=== PATIENT | male | born 1945 | race Hispanic/Latino ===

== ENCOUNTER 2018-10-10 06:45 | Observation (INO) | payer MEDICARE ==
[~2018-10-10] VITALS: Ht 175.3 cm; Wt 76.0 kg
--- OUTSIDE RECORDS SUMMARY | 2018-10-10 06:47 | XMS REPORT ---
[facility] Address Unknown Phone Unavailable Care Team Providers Care Alcohol And Drug Counselor Name Role Phone Unavailable Unavailable Payers Payer Name Policy Type Policy Number Effective Date Expiration Date Problems This patient has no known problems. Allergies, Adverse Reactions, Alerts This patient has no known allergies or adverse reactions. Medications This patient has no known medications. Encounters Start Date/Time End Date/Time Encounter Type Admission Type Attending [facility] Care Facility Care Department Encounter ID 2018-09-29 00:00:00 2018-09-29 00:00:00 Outpatient [facility] [id number] 2018-09-14 05:14:53 2018-09-14 05:14:53 Emergency [facility] [id number] 2018-09-14 00:58:30 2018-09-14 00:58:30 Emergency [facility] [id number] 2018-09-13 22:27:47 2018-09-13 22:27:47 Emergency [facility] [id number] 2018-09-13 21:35:13 2018-09-13 21:35:13 Outpatient [facility] [id number]
--- OUTSIDE RECORDS SUMMARY | 2018-10-10 06:47 | XMS REPORT | Clinical Summary ---
Author Author [facility] Organization [facility] Address Unknown Phone Unavailable Care Team Providers Care Dental Manager Name Role Phone PCP Unavailable Allergies No Known Allergies Medications End Date Status Medication Sig Dispensed Refills Start Date Active losartan (COZAAR) 50 mg Take 50 mg by 0 tablet mouth daily. Active allopurinol (ZYLOPRIM) Take 300 mg 0 300 mg tablet by mouth daily. Active acetaminophen (TYLENOL) Take 2 30 tablet 0 500 mg tabletIndications: tablets by 9 Non-intractable vomiting mouth every 6 with nausea, unspecified hours. vomiting type Active omeprazole (PRILOSEC) 20 Take 2 90 capsule 0 mg delayed release capsules by 9 capsuleIndications: mouth every Non-intractable vomiting morning with nausea, unspecified (before vomiting type breakfast). 12/14/2018 Active sucralfate (CARAFATE) 1 Take 1 tablet 120 tablet 2 gram tabletIndications: by mouth 4 9 Non-intractable vomiting times daily with nausea, unspecified for 90 days. vomiting type 09/15/2018 Discontinued lisinopril-hydrochlorothi Take 1 tablet 0 azide (PRINZIDE, by mouth ZESTORETIC) 20-25 mg per daily. tablet 09/15/2018 Discontinued naproxen (NAPROSYN) 500 Take 500 mg 0 mg tablet by mouth 2 times daily (with meals). 09/15/2018 Discontinued amoxicillin-clavulanate Take 1 tablet 0 (AUGMENTIN) 500-125 mg by mouth 3 per tablet times daily. 09/15/2018 Discontinued benzonatate (TESSALON Take 1 30 capsule 0 PERLES) 100 mg capsule by 4 capsuleIndications: Cough mouth 3 times daily as needed for Cough. 09/15/2018 Discontinued indomethacin (INDOCIN) 50 Take 1 30 capsule 0 mg capsuleIndications: capsule by 4 Gout, unspecified mouth 2 times daily (with meals). 09/15/2018 Discontinued traMADol (ULTRAM) 50 mg Take 1 tablet 30 tablet 0 tabletIndications: Gout, by mouth 4 unspecified every 6 hours as needed for Pain. 09/15/2018 Discontinued meclizine (ANTIVERT) 25 Take 1 tablet 30 tablet 0 mg TabIndications: by mouth 3 6 Vertigo times daily as needed for Nausea. 09/25/2018 docusate sodium (COLACE) Take 1 10 capsule 0 100 mg capsule by 9 capsuleIndications: mouth 2 times Non-intractable vomiting daily for 10 with nausea, unspecified days. vomiting type Active Problems Problem Noted Date Non-intractable vomiting with nausea 09/13/2018 Vertigo 06/17/2015 Essential hypertension, benign 09/23/2013 Gout, unspecified 09/23/2013 Cough 09/16/2013 Encounters Care Team Description Date Type Specialty Won Hunter MD Sergot, Paulina, MD Huebinger, Ryan M, MD Wilson, Todd D, MD Wilson, Lily, RN Non-intractable vomiting with nausea, unspecified vomiting type (Primary Dx); Cough; Generalized abdominal pain 09/13/2018 Emergency - 09/15/2018 09/13/2018 Travel after 10/09/2017 Social History Date Tobacco Use Types Packs/Day Years Used Quit: 09/15/1991 Former Smoker 1.5 15 Smokeless Tobacco: Never Used Alcohol Use Drinks/Week oz/Week Comments No Sex Assigned at Date Recorded Not on file Industry Job Start Date Occupation Not on file Not on file Not on file Travel End Travel History Travel Start No recent travel history available. Last Filed Vital Signs Time Taken Vital Sign Reading 09/15/2018 2:37 PM CDT Blood Pressure 123/75 09/15/2018 2:37 PM CDT Pulse 91 09/15/2018 2:37 PM CDT Temperature 36.8 C (98.3 F) 09/15/2018 2:37 PM CDT Respiratory Rate 18 09/14/2018 8:37 AM CDT Oxygen Saturation 98% - Inhaled Oxygen - Concentration 09/14/2018 9:50 AM CDT Weight 81.6 kg (180 lb) 09/14/2018 9:50 AM CDT Height 172.7 cm (5' 8") 09/14/2018 9:50 AM CDT Body Mass Index 27.37 Plan of Treatment Health Maintenance Due Date Last Done Comments Colorectal Cancer Scrn 09/21/1997 Annual (FIT/FOBT) Age 50 to 75 IMM Pneumococcal Age 65 09/21/2012 and Up IMM Influenza Seasonal 02/24/2019 Oct to July (>/=19 yrs) Procedures Comments Procedure Name Priority Date/Time Associated Diagnosis U/S ABDOMEN LIMITED STAT 09/14/2018 Generalized abdominal 6:06 AM CDT pain TROPONIN I POC Routine 09/14/2018 1:[address] ABDOMEN AND PELVIS STAT 09/14/2018 Generalized abdominal CONTRAST 1:26 AM CDT pain 12 LEAD EKG Routine 09/14/2018 1:11 AM CDT XRAY CHEST 2 VIEWS STAT 09/13/2018 Non-intractable vomiting 10:35 PM CDT with nausea, unspecified vomiting type Cough 12 LEAD EKG Routine 09/13/2018 9:59 PM CDT ABG POC Routine 09/13/2018 9:51 PM CDT BMP POC Routine 09/13/2018 9:50 PM CDT TROPONIN I POC Routine 09/13/2018 9:48 PM CDT CBC/DIFF STAT 09/13/2018 9:45 PM CDT LIVER PROFILE STAT 09/13/2018 9:45 PM CDT LIPASE STAT 09/13/2018 9:45 PM CDT after 10/09/2017 Results * U/S ABDOMEN LIMITED (09/14/2018 6:06 AM CDT) Impressions Performed At IMPRESSION: [facility] Findings are equivocal for acute cholecystitis. There are nonmobile stones at the gallbladder neck with trace pericholecystic fluid, but wall thickening and sonographic Morel sign are absent. Correlate with clinical suspicion and exam. A HIDA scan may be beneficial, if doubt persists. This [facility] radiology report is a preliminary resident dictation until finalized by an attending.Changes to this preliminary report may occur in an additional preliminary or finalized version. Dictated By: Niraj Vu MD, 09/14/2018 6:27 AM I have reviewed the study and agree with the findings in this report. Signed By: David Renee MD, 09/14/2018 6:42 AM Narrative Performed At EXAM: US ABDOMEN LIMITED [facility] DATE: 09/14/2018 6:06 AM INDICATION: Right upper quadrant pain, stone in neck. Generalized abdominal pain COMPARISON: CT abdomen/pelvis 09/14/2018 TECHNIQUE: Multiplanar grayscale and color Doppler ultrasound of the right upper quadrant. FINDINGS: Liver: Craniocaudal length: 15.6 cm. Echogenicity: Normal. Surface: Normal. Mass (size and location): None. Main portal vein: Caliber: 1.3 cm. Flow: Hepatopetal. Bile ducts: Common bile duct diameter: 0.4 cm. Intrahepatic ducts: Normal. Gallbladder: Well distended. Gallstones: Multiple stones including nonmobile gallstones near the gallbladder neck. Gallbladder sludge: Large amount. Gallbladder wall: 0.2 cm. Polyps/masses: None. Pericholecystic fluid: Trace. Sonographic Morel sign: Absent; The patient was medicated, however. Pancreas: Partially obscured. No focal lesions. Spleen: Size: 9.7 x 5.1 x 4.9 cm. Mass or focal lesion (size and location): None. Right kidney: Size: 8.9 x 4.3 x 5.7 cm. Cortical thickness: Normal. Hydronephrosis: None. Echogenicity: Normal. Calculi: None. Cysts/Masses: Multiple anechoic (simple) cysts are seen. Free fluid: None. Other: None. Procedure Note Interface, Rad/Mammog In - 09/14/2018 6:47 AM CDT EXAM: US ABDOMEN LIMITED DATE: 09/14/2018 6:06 AM INDICATION: Right upper quadrant pain, stone in neck. Generalized abdominal pain COMPARISON: CT abdomen/pelvis 09/14/2018 TECHNIQUE: Multiplanar grayscale and color Doppler ultrasound of the right upper quadrant. FINDINGS: Liver: Craniocaudal length: 15.6 cm. Echogenicity: Normal. Surface: Normal. Mass (size and location): None. Main portal vein: Caliber: 1.3 cm. Flow: Hepatopetal. Bile ducts: Common bile duct diameter: 0.4 cm. Intrahepatic ducts: Normal. Gallbladder: Well distended. Gallstones: Multiple stones including nonmobile gallstones near the gallbladder neck. Gallbladder sludge: Large amount. Gallbladder wall: 0.2 cm. Polyps/masses: None. Pericholecystic fluid: Trace. Sonographic Morel sign: Absent; The patient was medicated, however. Pancreas: Partially obscured. No focal lesions. Spleen: Size: 9.7 x 5.1 x 4.9 cm. Mass or focal lesion (size and location): None. Right kidney: Size: 8.9 x 4.3 x 5.7 cm. Cortical thickness: Normal. Hydronephrosis: None. Echogenicity: Normal. Calculi: None. Cysts/Masses: Multiple anechoic (simple) cysts are seen. Free fluid: None. Other: None. IMPRESSION IMPRESSION: Findings are equivocal for acute cholecystitis. There are nonmobile stones at the gallbladder neck with trace pericholecystic fluid, but wall thickening and sonographic Morel sign are absent. Correlate with clinical suspicion and exam. A HIDA scan may be beneficial, if doubt persists. This [facility] radiology report is a preliminary resident dictation until finalized by an attending. Changes to this preliminary report may occur in an additional preliminary or finalized version. Dictated By: Niraj Vu MD, 09/14/2018 6:27 AM I have reviewed the study and agree with the findings in this report. Signed By: David Renee MD, 09/14/2018 6:42 AM Performing Organization Address [facility] Phone Number SMS * TROPONIN I POC (09/14/2018 1:44 AM CDT) Only the most recent of 2 results within the time period is included. Troponin POC 0.00Comment: Physician 0.00 - 0.08 ng/mL [facility] Notified MAIN-STATION 1 Performing Organization Address [facility] Phone Number MISYS [facility] MAIN-STATION 1 * CT ABDOMEN AND PELVIS CONTRAST (09/14/2018 1:26 AM CDT) Impressions Performed At IMPRESSION: SMS 1.Cholelithiasis with a large stone at the neck of the gallbladder but no CT evidence of acute cholecystitis. 2.Moderate sized hiatal hernia. 3.Bibasilar airspace opacities likely related to aspiration and/or pneumonia. 4.Mild renal cortical atrophy most pronounced on the right likely related to medical renal disease. 5.Diverticulosis without CT evidence of diverticulitis. 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 7.Small left diaphragmatic hernia, Bochdalek type, containing fat. This [facility] radiology report is a preliminary resident dictation until finalized by an attending.Changes to this preliminary report may occur in an additional preliminary or finalized version. Dictated By: Niraj Vu MD, 09/14/2018 1:51 AM I have reviewed the study and agree with the findings in this report. Signed By: David Renee MD, 09/14/2018 2:56 AM Narrative Performed At EXAM: CT ABDOMEN AND PELVIS WITH CONTRAST SMS DATE: 09/14/2018 1:36 AM INDICATION: abd pain, inability to tolerate PO. Generalized abdominal pain COMPARISON: None. TECHNIQUE: Volumetric CT of the abdomen and pelvis is acquired following the intravenous administration of contrast. Axial, coronal and sagittal images are provided. IV contrast: 100 cc Omnipaque Enteric contrast: None. DLP: 934 mGy-cm FINDINGS: Lines, tubes and hardware: None. Lower thorax: Ill-defined bibasilar groundglass opacities are present. Liver: Normal. Biliary tree: No intra- or extrahepatic biliary ductal dilation. Gallbladder: Multiple gallstones are identified. A large 2.4 cm stone is seen at the neck of the gallbladder. Gas containing stone is seen at the fundus. Pancreas: Normal. Spleen: Normal. Adrenals: Normal. Kidneys and ureters: Subcentimeter hypodensities , many of which are exophytic, are too small to accurately characterize, but likely represent cysts. There is asymmetric atrophy of the right kidney relative to the left. Nonspecific bilateral perinephric stranding. No stones or hydronephrosis. Bladder: Normal. Reproductive organs: Prostate and seminal vesicles are unremarkable. Gastrointestinal tract: Stomach: A moderate size hiatal hernia is present. There is an apparent lucent transmural defect in the greater curvature of the gastric body seen on the initial scan which does not persist on rescanning, likely artifactual on the initial acquisition. No adjacent free air is seen. Small bowel: Normal. Colon: Diverticulosis of the sigmoid colon without CT evidence of diverticulitis. Otherwise, normal. Appendix: Normal. (601/47). Peritoneum, mesentery and retroperitoneum: No free air, ascites or loculated fluid. Lymph nodes: Normal. Vasculature: Aorta and branches: Normal. IVC and veins: Normal. Portal vasculature: Normal. Bones: No acute abnormality. Severe degenerative changes of the lower lumbar spine are present. This includes degenerative disc disease throughout with multilevel loss of disc height. Bilateral L5-S1 pars defects with grade 2 anterolisthesis. Grade 1 L3 on L4 retrolisthesis is present. Severe multilevel facet arthropathy. Severe bilateral neural foraminal stenosis at L5-S1 and on the left at L3-L4. Soft tissues: A diaphragmatic hernia is present on the left side with herniation of fat through the defect. Small right fat-containing inguinal hernia. Procedure Note Interface, Rad/Mammog In - 09/14/2018 3:01 AM CDT EXAM: CT ABDOMEN AND PELVIS WITH CONTRAST DATE: 09/14/2018 1:36 AM INDICATION: abd pain, inability to tolerate PO. Generalized abdominal pain COMPARISON: None. TECHNIQUE: Volumetric CT of the abdomen and pelvis is acquired following the intravenous administration of contrast. Axial, coronal and sagittal images are provided. IV contrast: 100 cc Omnipaque Enteric contrast: None. DLP: 934 mGy-cm FINDINGS: Lines, tubes and hardware: None. Lower thorax: Ill-defined bibasilar groundglass opacities are present. Liver: Normal. Biliary tree: No intra- or extrahepatic biliary ductal dilation. Gallbladder: Multiple gallstones are identified. A large 2.4 cm stone is seen at the neck of the gallbladder. Gas containing stone is seen at the fundus. Pancreas: Normal. Spleen: Normal. Adrenals: Normal. Kidneys and ureters: Subcentimeter hypodensities , many of which are exophytic, are too small to accurately characterize, but likely represent cysts. There is asymmetric atrophy of the right kidney relative to the left. Nonspecific bilateral perinephric stranding. No stones or hydronephrosis. Bladder: Normal. Reproductive organs: Prostate and seminal vesicles are unremarkable. Gastrointestinal tract: Stomach: A moderate size hiatal hernia is present. There is an apparent lucent transmural defect in the greater curvature of the gastric body seen on the initial scan which does not persist on rescanning, likely artifactual on the initial acquisition. No adjacent free air is seen. Small bowel: Normal. Colon: Diverticulosis of the sigmoid colon without CT evidence of diverticulitis. Otherwise, normal. Appendix: Normal. (601/47). Peritoneum, mesentery and retroperitoneum: No free air, ascites or loculated fluid. Lymph nodes: Normal. Vasculature: Aorta and branches: Normal. IVC and veins: Normal. Portal vasculature: Normal. Bones: No acute abnormality. Severe degenerative changes of the lower lumbar spine are present. This includes degenerative disc disease throughout with multilevel loss of disc height. Bilateral L5-S1 pars defects with grade 2 anterolisthesis. Grade 1 L3 on L4 retrolisthesis is present. Severe multilevel facet arthropathy. Severe bilateral neural foraminal stenosis at L5-S1 and on the left at L3-L4. Soft tissues: A diaphragmatic hernia is present on the left side with herniation of fat through the defect. Small right fat-containing inguinal hernia. IMPRESSION IMPRESSION: 1. Cholelithiasis with a large stone at the neck of the gallbladder but no CT evidence of acute cholecystitis. 2. Moderate sized hiatal hernia. 3. Bibasilar airspace opacities likely related to aspiration and/or pneumonia. 4. Mild renal cortical atrophy most pronounced on the right likely related to medical renal disease. 5. Diverticulosis without CT evidence of diverticulitis. 6. Severe degenerative changes of the lumbar spine with bilateral L4-L5 pars defects and grade 2 anterolisthesis causing severe bilateral L4-5 neural foraminal stenosis. 7. Small left diaphragmatic hernia, Bochdalek type, containing fat. This [facility] radiology report is a preliminary resident dictation until finalized by an attending. Changes to this preliminary report may occur in an additional preliminary or finalized version. Dictated By: Niraj Vu MD, 09/14/2018 1:51 AM I have reviewed the study and agree with the findings in this report. Signed By: David Renee MD, 09/14/2018 2:56 AM Performing Organization Address City/State/Zipcode Phone Number SMS * 12 LEAD EKG (09/14/2018 1:11 AM CDT) [facility] Test Date:2018-09-14 Pat Name: AUTUMN Coulter ment: [id number] Room: [place] POD 2 Gender: M Relocation Services Specialist: :1946-0 09-21 Requested By: MANUELA JADE Order Number: [id number] Reading MD: Mason Rodríguez Measurements Intervals [place] Rate: 62 P:61 NE: 161 QRS: 33 QRSD: 93 T:52 QT: 405 QTc:412 Interpretive Statements SINUS RHYTHM EARLY R WAVE PROGRESSION Electronically Signed On 09-15-2018 16:15:07 CDT by Mason Rodríguez Performing Organization Address City/State/Zipcode Phone Number SMS * XRAY CHEST 2 VIEWS (09/13/2018 10:35 PM CDT) Impressions Performed At IMPRESSION: SMS 1.Mild bibasilar subsegmental atelectasis. Signed By: Abhijit Burgess MD, 09/13/2018 10:38 PM Narrative Performed At EXAM: XR CHEST 2 VIEWS SMS DATE: 09/13/2018 10:35 PM INDICATION: nausea, vomiting. Non-intractable vomiting with nausea, unspecified vomiting type COMPARISON: Chest radiograph 09/15/2013 TECHNIQUE: PA and lateral chest radiographs FINDINGS: Lines, tubes and hardware: None. Lungs and pleura: Mild bibasilar subsegmental atelectasis. The costophrenic sulci are sharp, without pleural effusion. Heart and mediastinum: The heart size is normal. The mediastinal contours are normal. Bones: No acute bony abnormality. Procedure Note Interface, Rad/Mammog In - 09/13/2018 10:43 PM CDT EXAM: XR CHEST 2 VIEWS DATE: 09/13/2018 10:35 PM INDICATION: nausea, vomiting. Non-intractable vomiting with nausea, unspecified vomiting type COMPARISON: Chest radiograph 09/15/2013 TECHNIQUE: PA and lateral chest radiographs FINDINGS: Lines, tubes and hardware: None. Lungs and pleura: Mild bibasilar subsegmental atelectasis. The costophrenic sulci are sharp, without pleural effusion. Heart and mediastinum: The heart size is normal. The mediastinal contours are normal. Bones: No acute bony abnormality. IMPRESSION IMPRESSION: 1. Mild bibasilar subsegmental atelectasis. Signed By: Abhijit Burgess MD, 09/13/2018 10:38 PM Performing Organization Address City/[facility] Phone Number SMS * 12 LEAD EKG (09/13/2018 9:59 PM CDT) 12 LEAD EKG FOR [facility] Test Date:2018-09-13 Pat Name: AUTUMN Coulter ment: [id number] Room: [place] POD 2 Gender: M Relocation Services Specialist: :1946-0 09-21 Requested By: WON Colvin Order Number: [id number] Reading MD: Mason Rodríguez Measurements Intervals [place] Rate: 75 P:49 NE: 157 QRS: 20 QRSD: 89 T:47 QT: 372 QTc:416 Interpretive Statements SINUS RHYTHM EARLY R WAVE PROGRESSION Electronically Signed On 09-15-2018 16:15:03 CDT by Mason Rodríguez Performing Organization Address [facility] Phone Number SMS * ABG POC (09/13/2018 9:51 PM CDT) pH, Art POC 7.36 7.35 - 7.45 [facility]IN[facility]ST[facility] 1 pCO2,Art POC 40.9 32.0 - 45.0 mm Hg [facility] 1 pO2, Art POC 22 (LL) 72 - 104 mm Hg [facility] 1 HCO3, Art POC 22.9 22.0 - 26.0 mmol/L [facility] 1 % Sat, Art POC 36 (L) 95 - 99 % [facility] 1 Lactic Acid POC 0.83 0.4 - 2.0 mmol/L [facility] 1 Base Deficit 3 [facility] Art POC MAIN-STATION 1 Sample Type Art [facility] 1 TCO2, ART POC 24 21 - 32 mmol/L [facility] 1 Performing Organization Address City/State/[facility] Phone Number MISYS [facility] 1 * BMP POC (09/13/2018 9:50 PM CDT) CO2 POC 23 21 - 32 mmol/L [facility] 1 Chloride POC 103 98 - 107 mmol/L [facility] 1 Potassium POC 3.9 3.50 - 5.10 mmol/L [facility] 1 Sodium POC 138 136 - 145 mmol/L [facility] 1 Glucose POC 115 (H) 74 - 106 mg/dL [facility] MAIN-STATION 1 Urea Nitrogen 27 (H) 7 - 18 mg/dL [facility] MAIN-STATION 1 Creatinine POC 1.2 0.6 - 1.3 mg/dL [facility] MAIN-STATION 1 Calcium Ionized 1.15 1.15 - 1.29 mmol/L [facility] MAIN-STATION 1 Hemoglobin POC 12.2 (L) 14.0 - 18.0 g/dL [facility] MAIN-STATION 1 Hematocrit POC 36.0 (L) 40.0 - 54.0 % [facility] MAIN-STATION 1 GFR, Estimated 60 mL/min/1.73 m2 [facility] MAIN-STATION 1 GFR, Estim, >60 mL/min/1.73 m2 [facility] Afr-Am MAIN-STATION 1 Performing Organization Address [facility] Phone Number [facility] 1 * LIVER PROFILE (09/13/2018 9:45 PM CDT) T Protein 7.1 6.0 - 8.3 g/dL [facility] 1 Albumin 3.9 (L) 4.2 - 5.5 g/dL [facility] MAIN-STATION 1 T Bilirubin 0.3 0.2 - 1.2 mg/dL [facility] MAIN-STATION 1 Alk Phos 100 34 - 104 U/L [facility] MAIN-STATION 1 AST 15 13 - 39 U/L [facility] MAIN-STATION 1 ALT 12 7 - 52 U/L [facility] MAIN-STATION 1 D Bilirubin 0.1 0.0 - 0.2 mg/dL [facility] MAIN-STATION 1 Specimen Blood Performing Organization Address [facility] Phone Number [facility] 1 * LIPASE (09/13/2018 9:45 PM CDT) Lipase 35 11 - 81 U/L [facility] 1 Specimen Blood Performing Organization Address [facility] Phone Number [facility] * CBC/DIFF (09/13/2018 9:45 PM CDT) WBC 8.6 4.5 - 12.0 K/uL [facility] MAIN-STATION 2 RBC 4.02 (L) 4.60 - 6.20 M/uL [facility] MAIN-STATION 2 Hemoglobin 11.9 (L) 14.0 - 18.0 g/dL [facility] 2 Hematocrit 36.5 (L) 40.0 - 54.0 % [facility] 2 MCV 91 82 - 92 fL [facility] 2 MCH 29.6 27.0 - 31.0 pg [facility] 2 MCHC 32.6 32.0 - 36.0 g/dL [facility] 2 RDW 43.8 35.1 - 43.9 fL [facility] 2 Platelet 304 150 - 400 K/uL [facility] 2 Mean Platelet 10.0 9.4 - 12.4 fL [facility] Volume [facility]IN-[facility] 2 Percent NRBC 0.0 [facility] 2 Absolute NRBC 0.00 [facility] 2 Neutrophil 72.1 (H) 34.0 - 67.9 % [facility] 2 Lymphocyte 17.1 (L) 21.8 - 50.0 % [facility] 2 Monocyte 6.0 5.3 - 12.0 % [facility] 2 Eosinophil 3.8 0.8 - 5.0 % [facility] 2 Basophil 0.7 0.2 - 1.2 % [facility] 2 Pct Immat Gran 0.3 0.0 - 0.5 [facility] 2 Neutrophil, Abs 6.22 (H) 1.78 - 5.36 K/uL [facility] 2 Lymphocyte, Abs 1.48 1.32 - 3.57 K/uL [facility] 2 Monocyte, Abs 0.52 0.30 - 0.82 K/uL [facility] 2 Eosinophil, Abs 0.33 0.04 - 0.54 K/uL [facility] 2 Basophil, Abs 0.06 0.01 - 0.08 K/uL [facility] 2 Absol Immat 0.03 0.00 - 0.03 K/uL [facility] Gran MAIN-STATION 2 Specimen Blood Performing Organization Address City/State/Zipcode Phone Number MISYS [facility] MAIN-STATION 2 after 10/09/2017 Insurance Type Payer Benefit Subscriber ID Effective Phone Address Plan / Dates Group [facility] xxxxxxxx 2018-P [phone] [facility] resent [id number] [address] [place] [address] Advance Directives For more information, please contact: [address] [address] Date Inactivated Comments Code Status Date Activated 09/15/2018 4:42 PM Full Code 09/14/2018 7:55 AM
[2018-10-10] MEDS ORDERED: LOSARTAN POTASS25 MG PO (09:33)
[2018-10-10] MEDS ORDERED: SUCRALFATE1 GM PO (09:33)
[2018-10-10] MEDS ORDERED: OMEPRAZOLE20 MG PO (09:33)
[2018-10-10] MEDS ORDERED: ALLOPURINOL300 MG PO (09:33)
[2018-10-10] MEDS ORDERED: DOCUSATE SODIU100 MG PO (09:33)
[2018-10-10] MEDS ORDERED: ACETAMINOPHEN325 M1 PO (09:33)
[2018-10-10] MEDS ORDERED: BUPIVACAINE 0.25%/EPI 30ML SDV INJ ONE (10:09)
[2018-10-10] MEDS ORDERED: HYDROGEN PEROXIDE 120 ML BTL ONE (13:43)
[2018-10-10] MEDS: DEXTROSE 5%/LACTATED RINGERS 1,000 ML IV SCH (14:47)
[2018-10-10] MEDS ORDERED: FENTANYL CITRATE/PF 100MCG/2 ML INJ ONE ×2 (14:49→17:32)
[2018-10-10] MEDS ORDERED: HYDROMORPHONE 1MG/1ML INJ IV PRN (15:00)
--- OUTSIDE RECORDS SUMMARY | 2018-10-10 15:08 | XMS REPORT | Clinical Summary ---
Author Author [facility] Organization [facility] Address Unknown Phone Unavailable Care Team Providers Care Slack Line Yarder Name Role Phone PCP Unavailable Allergies No [...] 6:06 AM CDT) Impressions Performed At IMPRESSION: [facility] Findings are equivocal for acute cholecystitis. There are nonmobile stones at the gallbladder neck with trace pericholecystic fluid, but wall thickening and sonographic Morel sign are absent. Correlate with clinical suspicion and exam. A HIDA scan may be beneficial, if doubt persists. This [facility] radiology report is a preliminary resident dictation until finalized by an attending.Changes to this preliminary report may occur in an additional preliminary or finalized version. Dictated By: Niraj Vu MD, 09/14/2018 6:27 AM I have reviewed the study and agree with the findings in this report. Signed By: David Renee MD, 09/14/2018 6:42 AM Narrative Performed At EXAM: US ABDOMEN LIMITED [facility] DATE: 09/14/2018 6:06 AM INDICATION: [...] may be beneficial, if doubt persists. This [facility] radiology report is a preliminary resident dictation until finalized by an attending. Changes to this preliminary report may occur in an additional preliminary or finalized version. Dictated By: Niraj Vu MD, 09/14/2018 6:27 AM I have reviewed the study and agree with the findings in this report. Signed By: David Renee MD, 09/14/2018 6:42 AM Performing Organization Address [facility] Phone Number SMS * TROPONIN I POC (09/14/2018 1:44 AM CDT) Only the most recent of 2 results within the time period is included. Troponin POC 0.00Comment: Physician 0.00 - 0.08 ng/mL [facility] Notified MAIN-STATION [address] [facility] Phone Number MISYS [facility] MAIN-STATION 1 * CT ABDOMEN AND PELVIS [...] diaphragmatic hernia, [place] type, containing fat. This [facility] radiology report is a preliminary resident [...] diaphragmatic hernia, [place]dalek type, containing fat. 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[employer]: :1946-0 09-21 Requested By: MANUELA JADE Order Number: [id number] Reading MD: Mason Rodríguez Measurements Intervals Theodore Rate: 62 P:61 MA: 161 QRS: 33 QRSD: 93 T:52 QT: [...] MD, 09/13/2018 10:38 PM Performing Organization Address City/[facility] Phone Number SMS * 12 LEAD EKG (09/13/2018 9:59 PM CDT) 12 LEAD EKG FOR [facility] Test Date:2018-09-13 Pat Name: AUTUMN Coulter ment: [id number] Room: [place] POD 2 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 Phone Number SMS * ABG POC (09/13/2018 [...] mmol/L [facility] MAIN-STATION 1 Performing Organization Address City/State/[facility] Phone Number MISYS [facility] MAIN-STATION 1 * BMP POC (09/13/2018 9:50 PM CDT) CO2 POC 23 21 - 32 mmol/L [facility] MAIN-STATION 1 Chloride POC 103 98 - 107 mmol/L [facility] MAIN-STATION 1 Potassium POC 3.9 3.50 - 5.10 mmol/L [facility] MAIN-STATION 1 Sodium POC 138 136 - 145 mmol/L [facility] MAIN-STATION 1 Glucose POC 115 (H) 74 - 106 mg/dL [facility] MAIN-STATION 1 Urea Nitrogen 27 (H) 7 - 18 mg/dL [facility] MAIN-STATION 1 Creatinine POC 1.2 0.6 - 1.3 mg/dL [facility] MAIN-STATION 1 Calcium Ionized 1.15 1.15 - 1.29 mmol/L [facility] MAIN-STATION 1 Hemoglobin POC 12.2 (L) 14.0 - 18.0 g/dL [facility] MAIN-STATION 1 Hematocrit POC 36.0 (L) 40.0 - 54.0 % [facility] MAIN-STATION 1 GFR, Estimated 60 mL/min/1.73 m2 [facility] MAIN-STATION 1 GFR, Estim, >60 mL/min/1.73 m2 [facility] Afr-Am MAIN-STATION [address] [facility] Phone Number COUNT INCLUDES THE [facility] MAIN-STATION 1 * LIVER PROFILE (09/13/2018 9:45 PM CDT) T Protein 7.1 6.0 - 8.3 g/dL [facility]-STATION 1 Albumin 3.9 (L) 4.2 - 5.5 g/dL [facility] MAIN-STATION 1 T Bilirubin 0.3 0.2 - 1.2 mg/dL [facility] MAIN-STATION 1 Alk Phos 100 34 - 104 U/L [facility] MAIN-STATION 1 AST 15 13 - 39 U/L [facility] MAIN-STATION 1 ALT 12 7 - 52 U/L [facility] MAIN-STATION 1 D Bilirubin 0.1 0.0 - 0.2 mg/dL [facility] MAIN-STATION 1 Specimen Blood Performing Organization Address [facility] Phone Number COUNT INCLUDES THE [facility] MAINSTATION 1 * LIPASE (09/13/2018 9:45 PM CDT) Lipase 35 11 - 81 U/L [facility]-STATION 1 Specimen Blood Performing Organization Address [facility] Phone Number [facility] * CBC/DIFF (09/13/2018 9:45 PM CDT) WBC 8.6 4.5 - 12.0 K/uL [facility] MAIN-STATION 2 RBC 4.02 (L) 4.60 - 6.20 M/uL [facility] MAIN-STATION 2 Hemoglobin 11.9 (L) 14.0 - [...] Performing Organization Address City/State/Zipcode Phone Number MISYS [facility] MAIN-STATION 2 after 10/09/2017 Insurance Type Payer Benefit Subscriber ID Effective Phone Address Plan / Dates Group [facility] xxxxxxxx 2018-P [phone] [facility] resent [id number] [address] [place] [address] Advance Directives For more information, please contact: [address] [address] Date Inactivated Comments Code Status Date Activated 09/15/2018 4:42 PM Full Code 09/14/2018 7:55 AM
[2018-10-10] MEDS ORDERED: DEXTROSE 5%/LACTATED RINGERS 1,000 ML IV ONE (15:27)
--- NOTE | 2018-10-10 15:30 | NUR ---
Patient admitted to unit from PACU. Patient is post op lap rukhsana. 6 trochar sites covered with microfoam tape. Two KACIE drains noted. Patient is NPO at this time. Lung childers clear to auscultation. Bowel sounds absent at this time. Family at bedside. No edema noted. Patient ambulates on his own with no assistive device per family. Right wrist IV in place. IV fluids infusing.
[2018-10-10] MEDS: ONDANSETRON HCL INJ 2MG/ML 2ML 2 MG/ML VIAL IV PRN (15:49)
[2018-10-10] MEDS: HYDROMORPHONE 2MG/ML 2 MG/ML ML IV PRN ×2 (15:49→22:19)
[2018-10-10 15:53] VITALS: BP 137/63
[2018-10-10 15:54] VITALS: BP 137/63
[2018-10-10 16:14] VITALS: BP 137/63
[2018-10-10] MEDS: PANTOPRAZOLE 40 MG 10ML VIAL IV SCH (16:22)
[2018-10-10] MEDS: CEFTRIAXONE SOD 2 GM/NS 100 ML 100 ML IV SCH (16:35)
[2018-10-10] MEDS ORDERED: LIDOCAINE HCL 2% LOCAL INJ 5 ML SDV VIAL INJ ONE (17:23)
[2018-10-10] MEDS ORDERED: CEFAZOLIN SOD 1 GM VIAL ONE (17:23)
[2018-10-10] MEDS ORDERED: SEVOFLURANE INHAL SOLN 250 ML PEN BTL ONE (17:23)
[2018-10-10] MEDS ORDERED: PROPOFOL IV EMULSION 10 MG/ML 20 ML VIAL ONE (17:23)
[2018-10-10] MEDS ORDERED: NEOSTIGMINE 5 MG/5ML SYR ONE (17:23)
[2018-10-10] MEDS ORDERED: ROCURONIUM BROMIDE 10 MG/ML 5ML VIAL ONE (17:23)
[2018-10-10] MEDS ORDERED: GLYCOPYRROLATE INJ 1MG/ 5 ML SYR ONE (17:23)
[2018-10-10] MEDS ORDERED: DEXAMETHASONE SOD PHOS INJ 4 MG/ML VIAL ONE (17:23)
[2018-10-10] MEDS ORDERED: ONDANSETRON HCL INJ 2MG/ML 2ML 2 MG/ML VIAL ONE (17:23)
[2018-10-10] MEDS ORDERED: ACETAMINOPHEN 1000 MG/100 ML IV ONE (17:23)
[2018-10-10] MEDS ORDERED: MIDAZOLAM HCL 2 MG/2 ML VIAL ONE (17:32)
[2018-10-10] MEDS: METRONIDAZOLE 500MG/NS 100ML 100 ML IV SCH ×2 (17:55→23:42)
[2018-10-10 20:00] VITALS: BP 123/72
[2018-10-10 21:33] VITALS: BP 123/72
--- NOTE | 2018-10-10 22:14 | NUR ---
PATIENT WAS ASSISTED IN THE BATHROOM AND ABLE TO VOID.
--- NOTE | 2018-10-10 22:17 | Operative Report ---
DATE OF PROCEDURE: 10/10/2018 SURGEON: Roberto Dudley MD PREOPERATIVE DIAGNOSES: Cholelithiasis, biliary colic, history of diabetes. POSTOPERATIVE DIAGNOSES: Cholelithiasis,acute on chronic cholecystitis with empyema of the gallbladdert , history of diabetes. PROCEDURE PERFORMED: Laparoscopic cholecystectomy. ANESTHESIA: General endotracheal. METHOD CONSULTANT: SAMANTHA Mcbride. ESTIMATED BLOOD LOSS: 50 cc DRAINS: Two Nima Dominga , one Pen Beata COMPLICATION: None. INDICATIONS AND FINDINGS: The patient is a 73-year-old male with a history of diabetes, who was admitted for cholecystectomy. He was seen in the emergency room elsewhere and was diagnosed with cholelithiasis. The patient was released home. He had a CT scan and ultrasound revealed gallstones, large. INTRAOPERATIVE FINDINGS: The patient had acute on chronic cholecystitis of gallbladder. There was thickened wall with adhesions to the omentum of the gallbladder. There was significant inflammation in the area of the hepatoduodenal ligament. We had difficulties grasping the gallbladder initially because several large stones were present in the fundus of the gallbladder. We were able to grasp the gallbladder and elevated the first structure that came into view coming out of the gallbladder was a ductal structure. It was unclear whether this was the cystic duct, this was somewhat enlarged or the common bile duct that was adherent to the gallbladder. Before we clipped anything, we dissected the area carefully and methodically until we were able to identify rather small cystic duct that was also short. The the common bile duct junction was seen 360 degrees circumferentially. At this point, we then clipped the cystic duct distally twice and once proximally and transected. We then continued the dissection along the liver bed until we identified what appeared to be the main cystic artery and was transected with three titanium clips. We continued the dissection and proximal to that, we encounter another artery that appeared to be the main cystic artery is somewhat thickened and this was then transected between titanium clips also. The dissection was tedious and difficult because of the inflammation and the thickness of the wall and the presence of large stones in the fundus of the gallbladder. We got the dissection into the gallbladder and as we tried to separate the gallbladder from the liver bed, some mucosa was left behind. After we detached the gallbladder, we had spillage of the very large stones. We placed the large stones in an endobag and left it in the lower abdominal area on the right side in order not to enlarge the umbilical fascial opening, and continued the operation. The gallbladder was also placed in an endobag and left in the right lower quadrant region also. We then copiously irrigated the right lower quadrant, achieved hemostasis using electrocautery. We cauterized the mucosa that was left behind in the upper part of the gallbladder bed fossa and suctioned the effluent fluid until it was fairly clear. We at this point, removed the gallbladder and the large stones and then placed two 10 mm flat Nima-Machado drains, one in the foramen of Dante area, the other one in the left subhepatic region. They were brought out through the two 5 mm right upper quadrant trocars and secured there with 2-0 silk, connected them to self suction. After we did that, we again inspected the operative field, and there was no obvious bleeding or bile spillage or evidence of bowel injury. Then, we removed the pneumoperitoneum as well as the trocars, connected the drain to self suction and they were secured to the abdominal wall with 2-0 silk. We irrigated the port sites with peroxide and then we placed a quarter-inch [place] drain in the umbilical port site and secured there with 2-0 silk, also sterile dressing was applied. The patient has been admitted for treatment of his severe cholecystitis with empyema of the gallbladder and sepsis. He is a diabetic. MD SARKIS Brown/ASYA /[id number] DREW
[2018-10-11] VITALS (9 sets, daily range): BP systolic 66–134; BP diastolic 61–70
[2018-10-11] MEDS: DEXTROSE 5%/LACTATED RINGERS 1,000 ML IV SCH ×2 (00:47→10:12)
[2018-10-11] MEDS: HYDROMORPHONE 2MG/ML 2 MG/ML ML IV PRN ×3 (05:23→20:37)
[2018-10-11 05:40] LABS: BASOPHILS % 0.1 % (0.0-1.0); EOSINOPHILS # (AUTO) 0.1 (0.0-0.4); EOSINOPHILS % 1.5 % (0.0-6.0); HEMATOCRIT 30.6 % (38.2-49.6); HEMOGLOBIN 10.2 g/dL (14.0-18.0); LYMPHOCYTES # (AUTO) 0.7 (1.0-3.2); MEAN CORPUSCULAR HEMOGLOBIN 30.1 pg (28-32); MEAN CORPUSCULAR HGB CONC 33.3 g/dL (31-35); MEAN CORPUSCULAR VOLUME 90.3 fL (81-99); MONOCYTES # (AUTO) 0.7 (0.2-0.8); MONOCYTES % 7.5 % (4.4-11.3); NEUTROPHILS # (AUTO) 7.2 (2.1-6.9); NEUTROPHILS % 82.4 % (38.7-80.0); PLATELET COUNT 172 x10e3/uL (140-360); RED BLOOD COUNT 3.39 x10e6/uL (4.3-5.7); RED CELL DISTRIBUTION WIDTH 14.6 % (11.7-14.4)
[2018-10-11] MEDS: METRONIDAZOLE 500MG/NS 100ML 100 ML IV SCH ×4 (06:00→23:47)
[2018-10-11 06:08] LABS: ALANINE AMINOTRANSFERASE 62 IU/L (0-55); ALBUMIN 2.9 g/dL (3.5-5.0); ALBUMIN/GLOBULIN RATIO 0.9 (0.8-2.0); ALKALINE PHOSPHATASE 84 IU/L (40-150); ANION GAP 11.4 mmol/L (8-16); BLOOD UREA NITROGEN 15 mg/dL (7-26); BUN/CREATININE RATIO 18 (6-25); CALCIUM 8.5 mg/dL (8.4-10.2); CARBON DIOXIDE 24 mmol/L (22-29); CHLORIDE 109 mmol/L (98-107); CREATININE, SERUM 0.83 mg/dL (0.72-1.25); EST GLOMERULAR FILTRATION RATE > 60 ML/MIN (60-); GLUCOSE 131 mg/dL (74-118); POTASSIUM 4.4 mmol/L (3.5-5.1); SODIUM 140 mmol/L (136-145)
--- NOTE | 2018-10-11 07:00 | NUR ---
Rcvd patient in report this am. Patient is asleep in bed at this time. No s/s of distress noted
[2018-10-11 07:20] LABS: LYMPHOCYTES % (MANUAL) 10 % (19-48); MONOCYTES % (MANUAL) 2 % (3.4-9.0); NEUTROPHILS % (MANUAL) 88 % (40-74); PLATELET ESTIMATE ADEQUATE; PLATELET MORPHOLOGY COMMENT NORMAL; RBC MORPHOLOGY COMMENT NORMAL
[2018-10-11 07:21] LABS: TOXIC GRANULATION SLIGHT
--- NOTE | 2018-10-11 09:38 | NUR ---
Patient encouraged by staff and tech to get up and ambulate. Patient given a walker and assisted up. Tolerating well
--- NOTE | 2018-10-11 09:50 | NUR ---
Patient is AAOx3. Kyrgyz speaking only. Lung childers clear to auscultation. Bowel sounds present but hypoactive. No gas being passes at this time. Patient ambulating in hallway with walker. Right writs IV in place. Patient remains NPO. No s/s of distress noted. Pain noted at 3/10. Not requesting pain meds at this time. Dressing clean and dry to abd
[2018-10-11] MEDS: ONDANSETRON HCL INJ 2MG/ML 2ML 2 MG/ML VIAL IV PRN (10:12)
--- NOTE | 2018-10-11 13:28 | NUR ---
Nutrition Screen Note RD Recommendation for Physician: Initiate PO diet when medically feasible Plan of Care: RD following, monitoring for tolerance and adequacy Nutrition reason for involvement: Nutrition Risk Trigger - MST Primary Diagnose(s): cholelithiasis PMH: No H&P Ht:69 in Wt:169lb BMI: 25kg/m2 IBW:160lb RD Assessment: (10/10/2018) Chart reviewed. Labs and meds reviewed. Initial encounter with patient. Diet Hx: pt has no known food allergies. Pt is currnetly NPO, but is ready to eat. Pt and family wanted to know what he would be able to eat. Provided Pt with a low fat diet instruction. 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 Pt denies any N,V,D nor has any difficulty chewing or swallowing despite missing teeth. Current Diet: NPO Malnutrition Evaluation (10/10/2018) The patient does not meet criteria for a specified degree of malnutrition at this time. Will re-evaluate at follow-up as appropriate. Diet Education Needs Assessment: Diet education indicated, Learner(s): Pt, family Barriers: None Cultural/Language Modifications: Divehi Readiness: Method: Handout(Divehi) verbal Topics: low fat diet Understanding/Compliance: expect compliance Nutrition Care Level: Low Signed: Josue Mitchell RD, LD, CNSC
[2018-10-11] MEDS: PANTOPRAZOLE 40 MG 10ML VIAL IV SCH (16:10)
[2018-10-11] MEDS: CEFTRIAXONE SOD 2 GM/NS 100 ML 100 ML IV SCH (16:10)
[2018-10-11] MEDS ORDERED: HYDROCODONE/APAP 5MG-325MG TAB PO PRN (16:15)
--- NOTE | 2018-10-11 17:26 | NUR ---
Patient tolerated his clear liquids. NO c/o nausea or pain at this time.
[2018-10-11] MEDS: HYDROCODONE/APAP 7.5MG-325MG 1 EA TAB PO PRN (18:24)
--- NOTE | 2018-10-11 20:47 | NUR ---
Dressing to KACIE drain noted with scant amount of blood. Dressing reinforced.
[2018-10-12] VITALS (8 sets, daily range): BP systolic 116–125; BP diastolic 58–75
[2018-10-12] MEDS: HYDROMORPHONE 2MG/ML 2 MG/ML ML IV PRN ×2 (00:08→23:32)
[2018-10-12] MEDS: DEXTROSE 5%/LACTATED RINGERS 1,000 ML IV SCH ×2 (01:26→21:26)
[2018-10-12] MEDS: METRONIDAZOLE 500MG/NS 100ML 100 ML IV SCH ×4 (05:49→23:31)
[2018-10-12 06:01] LABS: BASOPHILS % 0.4 % (0.0-1.0); EOSINOPHILS # (AUTO) 0.3 (0.0-0.4); EOSINOPHILS % 4.4 % (0.0-6.0); HEMATOCRIT 27.9 % (38.2-49.6); LYMPHOCYTES # (AUTO) 0.6 (1.0-3.2); LYMPHOCYTES % 7.9 % (18.0-39.1); MEAN CORPUSCULAR HEMOGLOBIN 30.1 pg (28-32); MEAN CORPUSCULAR HGB CONC 32.3 g/dL (31-35); MEAN CORPUSCULAR VOLUME 93.3 fL (81-99); MONOCYTES # (AUTO) 0.6 (0.2-0.8); MONOCYTES % 7.5 % (4.4-11.3); NEUTROPHILS # (AUTO) 6.1 (2.1-6.9); NEUTROPHILS % 79.3 % (38.7-80.0); PLATELET COUNT 138 x10e3/uL (140-360); RED BLOOD COUNT 2.99 x10e6/uL (4.3-5.7)
[2018-10-12 06:28] LABS: ALANINE AMINOTRANSFERASE 43 IU/L (0-55); ALBUMIN 2.7 g/dL (3.5-5.0); ALBUMIN/GLOBULIN RATIO 0.9 (0.8-2.0); ALKALINE PHOSPHATASE 83 IU/L (40-150); BLOOD UREA NITROGEN 14 mg/dL (7-26); BUN/CREATININE RATIO 17 (6-25); CALCIUM 8.5 mg/dL (8.4-10.2); CARBON DIOXIDE 25 mmol/L (22-29); CHLORIDE 106 mmol/L (98-107); CREATININE, SERUM 0.83 mg/dL (0.72-1.25); EST GLOMERULAR FILTRATION RATE > 60 ML/MIN (60-); GLUCOSE 101 mg/dL (74-118); SODIUM 138 mmol/L (136-145)
--- NOTE | 2018-10-12 07:21 | NUR ---
Rcvd patient in report this am. Patient is awake in chair at this time. Patient concerned that his KACIE drain was bleeding last night. Informed daughter to translate and tell him that everything will be okay. He is doing everything the correct way
[2018-10-12] MEDS ORDERED: LOSARTAN POTASSIUM 25 MG TAB PO SCH (09:00)
--- NOTE | 2018-10-12 10:44 | NUR ---
Patient is AAOx3. Post op lap rukhsana. Trochar site dressings clean and dry. KACIE drains in place. No bleeding noted at drain sites. Lung childers clear to auscultation. Bowel sounds present and active x4. No edema noted. Patient tolerating clear liquids and no c/o pain and nausea. Patient encouraged to ambulate in the halls. NO s/s of distress noted
[2018-10-12] MEDS: HYDROCODONE/APAP 7.5MG-325MG 1 EA TAB PO PRN ×2 (11:40→20:29)
[2018-10-12] MEDS ORDERED: MAGNESIUM HYDROXIDE 30 ML UDC PO NR (14:30)
[2018-10-12] MEDS: PANTOPRAZOLE 40 MG 10ML VIAL IV SCH (15:50)
[2018-10-12] MEDS: CEFTRIAXONE SOD 2 GM/NS 100 ML 100 ML IV SCH (15:50)
[2018-10-13 04:18] VITALS: BP 137/76
[2018-10-13] MEDS: HYDROMORPHONE 2MG/ML 2 MG/ML ML IV PRN (04:23)
[2018-10-13] MEDS: METRONIDAZOLE 500MG/NS 100ML 100 ML IV SCH (05:34)
[2018-10-13 06:19] LABS: ALANINE AMINOTRANSFERASE 27 IU/L (0-55); ALBUMIN 2.7 g/dL (3.5-5.0); ALBUMIN/GLOBULIN RATIO 0.9 (0.8-2.0); ALKALINE PHOSPHATASE 79 IU/L (40-150); BASOPHILS % 0.4 % (0.0-1.0); BLOOD UREA NITROGEN 14 mg/dL (7-26); BUN/CREATININE RATIO 18 (6-25); CALCIUM 8.3 mg/dL (8.4-10.2); CARBON DIOXIDE 27 mmol/L (22-29); CHLORIDE 106 mmol/L (98-107); CREATININE, SERUM 0.76 mg/dL (0.72-1.25); EOSINOPHILS # (AUTO) 0.4 (0.0-0.4); EOSINOPHILS % 5.7 % (0.0-6.0); EST GLOMERULAR FILTRATION RATE > 60 ML/MIN (60-); GLUCOSE 101 mg/dL (74-118); HEMATOCRIT 28.9 % (38.2-49.6); HEMOGLOBIN 9.2 g/dL (14.0-18.0); LYMPHOCYTES # (AUTO) 0.9 (1.0-3.2); LYMPHOCYTES % 13.1 % (18.0-39.1); MEAN CORPUSCULAR HEMOGLOBIN 29.8 pg (28-32); MEAN CORPUSCULAR HGB CONC 31.8 g/dL (31-35); MEAN CORPUSCULAR VOLUME 93.5 fL (81-99); MONOCYTES # (AUTO) 0.6 (0.2-0.8); MONOCYTES % 8.9 % (4.4-11.3); NEUTROPHILS % 71.6 % (38.7-80.0); PLATELET COUNT 163 x10e3/uL (140-360); RED BLOOD COUNT 3.09 x10e6/uL (4.3-5.7); RED CELL DISTRIBUTION WIDTH 14.6 % (11.7-14.4); SODIUM 138 mmol/L (136-145)
--- NOTE | 2018-10-13 07:30 | NUR ---
REC'D PT AAOX3 AND SITTING ON CHAIR. DAUGHTER AT BEDSIDE. 20 GAUGE IV TO LEFT WRIST AND DRY AND INTACT. NO S/S OF DISTRESS. KACIE DRAINS ARE SUCTIONED AND CLOSED. DRESSINGS ON ABDOMEN ARE DRY AND INTACT. CALL ALLISON WITHIN REACH.
[2018-10-13 07:50] VITALS: BP 146/70
--- NOTE | 2018-10-13 08:30 | NUR ---
DR. RAJPUT IN ROOM WITH PATIENT. DR. RAJPUT TAUGHT PATIENT AND FAMILY HOW TO EMPTY KACIE DRAINS AND TO NOT WET DRESSINGS. DR. RAJPUT ALSO NOTIFIED PATIENT TO MAKE AN APPOINTMENT FOR FOLLOW UP ON TUESDAY, OCTOBER 16, 2018. PT SAID HE UNDERSTOOD INSTRUCTION.
[2018-10-13] MEDS ORDERED: ACETAMINOPHEN/CODEINE 300MG - 30MG TAB PO PRN (09:45)
[2018-10-13] MEDS ORDERED: HYDROCODONE/APAP 5MG-325MG TAB PO PRN (09:45)
[2018-10-13] MEDS ORDERED: TYLENOL WITH C1 EACH PO (10:48)
[2018-10-13] MEDS ORDERED: LEVAQUIN500 MG PO (10:48)
--- NOTE | 2018-10-13 11:12 | NUR ---
PT HAS BEEN DISCHARGED VIA WHEELCHAIR. AND DAUGHTERS WITH HIM. IV TO THE LEFT WRIST HAS BEEN D/C. NO BLEEDING OR COMPLICATIONS TO IV SITE. NO S/S OF DISTRESS. DISCHARGE PAPERS WERE GIVEN AND WENT OVER WITH PATIENT. INSTRUCTED PATIENT AND FAMILY TO CALL DR. RAJPUT'S OFFICE TO MAKE AN APPOINTMENT FOR TUESDAY, OCTOBER 16, 2018. TECH ESCORTED PATIENT TO AUTO.
--- NOTE | 2018-10-13 21:55 | Discharge Summary ---
DISCHARGE DIAGNOSES: 1. Acute cholecystitis with empyema of the gallbladder. 2. Hypertension. PROCEDURES PERFORMED DURING THIS HOSPITALIZATION: Laparoscopic cholecystectomy 10/12/18. HISTORY OF PRESENT ILLNESS AND HOSPITALIZATION COURSE: A 73-year-old male with history of hypertension and remote history of diabetes, who was admitted because of an episode of right upper quadrant pain for which he was diagnosed with cholecystitis. He had several large stones by CT and ultrasound,Lfts were normal: At the time of cholecystectomy were acute on chronic cholecystitis with empyema of the gallbladder, thickened wall, severe inflammatory changes throughout the right upper quadrant. This procedure took longer than usual because there were severe inflammatory changes and we had to elucidate the anatomy to safely perform procedure. A two Nima-Machado drains were placed in the right upper quadrant to drain the right subhepatic as well as left subhepatic region and once that was done, we drained the umbilical port site due to the acuteness of the situation. The patient was admitted to the hospital for postop care, intravenous antibiotics due to the infection of the gallbladder, pain control. The patient had serial blood work done The patient's pain was controlled initially with intrevenous dilauidid until he was was discharged home in stable condition on 10/14/2018. He was tolerating a regular diet well. His discharge medications were Levaquin and tylenol # 3.He was given instructions on how to care for his drains. He will be seen in the office 10/18 18 to remove the drains. MD SARKIS Brown/ASYA /[id number] DREW
[2018-10-14] MEDS ORDERED: LEVOFLOXACIN 500 MG TAB PO ONE (09:00)
== END 2018-10-13 11:11 | disposition home or self-care (01) ==
LOC: OR 06:45 → PACU V 14:49 → MED/SURG 15:29
PROVIDERS: ADMIT Surgery; ATTEND Surgery
DX: K80.12 Calculus of gallbladder with acute and chronic cholecystitis without obstruction (principal); K21.9 Gastro-esophageal reflux disease without esophagitis; K44.9 Diaphragmatic hernia without obstruction or gangrene; I10 Essential (primary) hypertension; E11.9 Type 2 diabetes mellitus without complications; M62.08 Separation of muscle (nontraumatic), other site; Z87.891 Personal history of nicotine dependence; Z82.49 Family history of ischemic heart disease and other diseases of the circulatory system; Z83.3 Family history of diabetes mellitus
CPT/HCPCS: 36415 ×4; 47562; 80053 ×3; 82948; 85025 ×3; 88304; 88305; 93005; C1766; C9113 ×3; G0378 ×4; J0131; J0690; J0696 ×4; J1100; J1170 ×4; J2001; J2250; J2405 ×2; J2704; J3490; J7121 ×3

== ENCOUNTER 2022-02-26 16:32 | Emergency (ER) | payer MEDICARE ==
[~2022-02-26] VITALS: Ht 177.8 cm; Wt 78.0 kg
[~2022-02-26 16:32] MED LIST: ACETAMINOPHEN325 M1 PO; ALLOPURINOL300 MG PO; DOCUSATE SODIU100 MG PO; LEVAQUIN500 MG PO; LOSARTAN POTASS25 MG PO; OMEPRAZOLE20 MG PO; SUCRALFATE1 GM PO; TYLENOL WITH C1 EACH PO
[2022-02-26] MEDS ORDERED: CORTISPORIN-TC10 M1 RIGHT EAR (17:14)
== END 2022-02-26 18:12 | disposition home or self-care (01) ==
LOC: ER 16:44
DX: H72.91 Unspecified perforation of tympanic membrane, right ear (principal); I10 Essential (primary) hypertension; K21.9 Gastro-esophageal reflux disease without esophagitis; M10.9 Gout, unspecified
CPT/HCPCS: 99282